=== PATIENT | female | born 1945 | race Caucasian/White ===

== ENCOUNTER → 2017-06-25 | Outpatient (CLI) | payer MEDICARE ==
--- NOTE | 2017-06-28 13:03 | RADIOLOGY REPORT PS360 ---
DIG MAMM-SCREEN СЕРГЕЙ W/CAD CAD Screening ORDERING PHYSICIAN : [facility] PATIENT AGE: 71 years GENDER: Female COMPARISON: Previous mammograms: November 2014. March INDICATION: Routine screening 71 year old with no hormones no new complaints noncontributory family history. TECHNIQUE: Standard CC and MLO images were obtained. R2 CAD reviewed. FINDINGS: Mild/ Moderate asymmetry is similar to studies dating back to 2011. No discrete or significant new findings. Faint vascular calcification bilaterally RIGHT BREAST: Moderate asymmetric glandular density in the retroareolar region on right again noted and similar to previous studies. No significant new findings.. Minimal Vascular calcifications bilaterally LEFT BREAST: . Left breast. Stable appearance is well. Bilateral follow-up in one year adequate IMPRESSION: Stable bilateral mammogram with no significant new findings. Stable mild/ moderate asymmetry. Bilateral follow-up one year recommended. BI-RADS CATEGORY: 2_Benign RECOMMENDED FOLLOWUP: 12M 12 MONTH FOLLOW-UP (A letter has been sent to the patient regarding results of the study.)
--- NOTE | 2017-06-28 13:03 | RADIOLOGY REPORT PS360 ---
DIG MAMM-SCREEN СЕРГЕЙ W/CAD CAD Screening ORDERING PHYSICIAN : [facility][1] PATIENT AGE: 71 years GENDER: Female COMPARISON: Previous mammograms: November 2014. March INDICATION: Routine screening 71 year old with no hormones no new complaints noncontributory family history. TECHNIQUE: Standard CC and MLO images were obtained. R2 CAD reviewed. FINDINGS: Mild/ Moderate asymmetry is similar to studies dating back to 2011. No discrete or significant new findings. Faint vascular calcification bilaterally RIGHT BREAST: Moderate asymmetric glandular density in the retroareolar region on right again noted and similar to previous studies. No significant new findings.. Minimal Vascular calcifications bilaterally LEFT BREAST: . Left breast. Stable appearance is well. Bilateral follow-up in one year adequate IMPRESSION: Stable bilateral mammogram with no significant new findings. Stable mild/ moderate asymmetry. Bilateral follow-up one year recommended. BI-RADS CATEGORY: 2_Benign RECOMMENDED FOLLOWUP: 12M 12 MONTH FOLLOW-UP (A letter has been sent to the patient regarding results of the study.)
== END ==
LOC: RAD 10:00
DX: Z12.31 Encounter for screening mammogram for malignant neoplasm of breast (principal)
CPT/HCPCS: G0202